=== PATIENT | female | born 2000 | race Caucasian/White ===

== ENCOUNTER 2020-03-09 13:06 | Emergency (ER) | payer SELFPAY ==
[2020-03-09] MEDS ORDERED: Bacitracin 1 PK ONE (13:46)
[2020-03-09 14:16] LABS: Bilirubin Small (Negative); Blood, Urine Negative (Negative); Clarity Clear (Clear); Glucose, Urine (Dipstick) Negative (Negative); Leukocyte Trace (Negative); Nitrite Negative (Negative); Protein, Urine (Dipstick) 100 mg/dL (Neg-Trace)
[2020-03-09 14:23] LABS: Bacteria/HPF Rare-Few HPF (None Seen); RBC/HPF None Seen HPF (0-3); WBC/HPF 0-3 HPF (0-3)
[2020-03-09] MEDS ORDERED: Adacel (T-DAP) 0.5 ML SYRINGE ONE (14:29)
== END 2020-03-09 14:50 ==
LOC: NAV ERS 13:06
DX: S91.114A Laceration without foreign body of right lesser toe(s) without damage to nail, initial encounter (principal); S40.812A Abrasion of left upper arm, initial encounter; S40.811A Abrasion of right upper arm, initial encounter; R30.0 Dysuria; F17.210 Nicotine dependence, cigarettes, uncomplicated; W26.8XXA Contact with other sharp object(s), not elsewhere classified, initial encounter
CPT/HCPCS: 81003; 81015; 90471; 90715; 99283